=== PATIENT | female | born 1960 | race Caucasian/White ===

== ENCOUNTER → 2017-10-04 12:36 | Outpatient (CLI) | payer OTHER, SELFPAY ==
--- NOTE | 2017-10-04 12:38 | RAD_ITS ---
STUDY: X-RAY CHEST REASON FOR EXAM: Female, 57 years old. Shortness of breath and dyspnea. TECHNIQUE: PA and lateral views of the chest. COMPARISON: Chest radiograph dated June 05, 2016. FINDINGS: The lungs are clear and expanded. There is no demonstrated pleural abnormality. Normal size heart. Normal mediastinum and teresa. Normal visualized pulmonary arteries. There is atherosclerotic calcification of the aortic arch with tortuosity. There is demineralization of the osseous structures. Normal visualized ribs, clavicles, and shoulders. There is no demonstrated abnormality of the visualized soft tissue structures of the upper abdomen. RAD/Chest PA and Lateral IMPRESSION: No radiographic evidence of acute cardiopulmonary disease. Electronically Signed: Christa Peres MD at 9:04 EDT , Service support ,
== END ==
PROVIDERS: Family Provider Internal Medicine; PCP Internal Medicine; Visit Provider Internal Medicine Critical Care Medicine
DX: R06.02 Shortness of breath (principal); R06.09 Other forms of dyspnea
CPT/HCPCS: 71046

== ENCOUNTER → 2018-01-14 06:34 | Outpatient (CLI) | payer OTHER, SELFPAY ==
--- NOTE | 2018-01-14 09:25 | STRESSREP ---
Stress Test Report Exercise myocardial perfusion stress test. 57-year-old lady with a history of chest pain. Medications atenolol, lovastatin, aspirin. Stress protocol: Resting EKG demonstrates normal sinus rhythm with rate of 74 bpm previous inferior infarct present. Resting blood pressure is 142/72 mmHg. The patient exercised according to the regular Sarbjit protocol for total duration of 5 minutes and 30 seconds completing 2 minutes and 30 seconds into stage II of the Sarbjit protocol. The maximum heart rate attained was 139 bpm which was 85% of maximum predicted heart rate the maximum workload was 7 metabolic equivalents. Patient maintained sinus rhythm throughout the recording. The at rest nonspecific ST-T wave changes were noted with no meet the criteria for ischemia at peak infusion nonspecific ST-T wave changes were noted. No clinical angina was noted. Myocardial perfusion protocol. 13.8 mCi of technetium 99m sestamibi was injected at rest. The patient exercised according to regular Sarbjit protocol for 5 minutes and 30 seconds attaining 85% maximum predicted heart rate and a workload of 7 metabolic equivalents. At peak exercise 42.4 mCi of technetium 99m sestamibi was injected stress images were obtained stress and rest images were reconstructed and compared in the short axis vertical long and horizontal long axis. Gated images were also obtained pre- Perfusion SPECT analysis: Review of the stress images demonstrate a medium-sized perfusion defect involving the mid and basal inferior wall and reduction of perfusion noted in the inferior apical wall. The resting images demonstrate a mild to moderate amount of improvement involving the mid inferior wall suggesting an area of ischemia in a previously infarcted zone. Gated SPECT analysis: The gated ejection fraction is noted to be 62% with basal inferior hypokinesis present. Conclusion: Exercise myocardial perfusion stress test with medium amount of ischemia noted in the mid inferior wall Preserved ejection fraction with wall motion abnormality. No obvious angina noted.
== END ==
PROVIDERS: Family Provider Internal Medicine; PCP Internal Medicine; Visit Provider Internal Medicine
DX: R07.9 Chest pain, unspecified (principal); R06.09 Other forms of dyspnea
CPT/HCPCS: 78452; 93017; A9500; A4216; J2785

== ENCOUNTER 2018-02-05 20:28 | Emergency (ER) | payer OTHER, SELFPAY ==
[2018-02-05 20:29] VITALS: BP 146/65; PULSE 72; RESP 16; TEMP 37.1; O2SAT 95; BMI 28.8
--- NOTE | 2018-02-05 22:03 | ED.VISSUMM ---
- ER Visit Summary Date of Service: 02/05/18 Chief Complaint: Right arm swelling History of Present Illness: The patient is a 57 F who states that she has right arm swelling. Been ongoing for 5 days but worse today. She had a heart catheterization through that right arm on January 31. She states she has had a mild amount of swelling but it is worse today. She has had some intermittent numbness to this right arm. She denies any cool feeling to the arm. No history of DVT or PE. Physical Examination: Signs are reviewed. Right arm exam reveals no significant swelling. She is not specifically tender anywhere on the arm. She has 2+ radial pulses. Her capillary refill is less than 2 seconds. She has full range of motion. Test Results: None performed at this time Emergency Department Course and Treatment: Ultrasound cannot be performed tonight. She will come back in the morning. I will give her Tylenol for pain. I do not feel this represents any vascular compromise on the arterial side. She has good pulses and she has no significant swelling at this time. Treatment Plan: [] Disposition: Discharge Impression: Right arm swelling This note was generated with [employer] dictation software. It may contain incorrect words, spelling, and punctuation that were not noted in review of the chart prior to signing ED Disposition - Plan for ED Patient: Disposition: Home or Assisted Living Chief Complaint: Upper Extremity Injury Instructions: ED Sprain Shoulder Referrals: Dotty Guerrero MD [Primary Care Provider] -
[2018-02-05 22:06] VITALS: BP 120/51; PULSE 64; RESP 16; O2SAT 98
[2018-02-05] MEDS: Acetaminophen 500 MG Tablet 1000 MG PO (22:08)
== END 2018-02-05 22:23 | disposition home or self-care (01) ==
LOC: ED 22:12
PROVIDERS: Emergency Provider Emergency Medicine; Family Provider Internal Medicine; PCP Internal Medicine
DX: M79.89 Other specified soft tissue disorders (principal); I25.10 Atherosclerotic heart disease of native coronary artery without angina pectoris; Z72.0 Tobacco use; J44.9 Chronic obstructive pulmonary disease, unspecified; Z95.1 Presence of aortocoronary bypass graft
CPT/HCPCS: 99282

== ENCOUNTER → 2018-12-05 07:25 | Outpatient (CLI) | payer OTHER, SELFPAY ==
[2018-11-06 10:40] VITALS: BMI 28.4
--- NOTE | 2018-12-05 14:44 | PFTCOMP_ITS ---
COMPLETE PULMONARY FUNCTION TEST INTERPRETATION Brief HPI: Patient is a 58 year old female, currently under the care of myself, who presents to [facility] for complete pulmonary function tests secondary to diagnosis of COPD. Respiratory therapist reports good effort and reproducible results. Interpretation: Forced expiration spirometry shows a very severe large airways obstructive ventilatory defect with an FEV1 of 26% predicted. There is no significant bronchodilator response by strict ATS criteria. Spirograms are of good quality and plateau slowly, indicating slowly emptying areas of the lungs. The respiratory flow volume loop shows decreased expiratory flow rates at all lung volumes consistent with airway obstruction. Lung volumes by body plethysmography show a normal total lung capacity at 4.83 L, 95% predicted. FRC and RV are elevated out of proportion. Lung volume measurements are consistent with air-trapping. Diffusion capacity by carbon monoxide is reduced at 48% predicted. The airway resistance is elevated. Compared to previous pulmonary function tests from 04/24/2017, there is been a significant reduction in FVC and FEV1 by 24% and 32% respectively. Impression: Irreversible very severe large airways obstructive ventilatory defect resulting in air trapping and decreased diffusing capacity. There has been worsening compared to previous.
== END ==
PROVIDERS: Family Provider Internal Medicine; PCP Internal Medicine; Referring Provider Nurse Practitioner Acute Care; Visit Provider Nurse Practitioner Acute Care
DX: J44.9 Chronic obstructive pulmonary disease, unspecified (principal)
CPT/HCPCS: 94060; 94726; 94729

== ENCOUNTER → 2019-02-24 08:39 | Outpatient (CLI) | payer OTHER, SELFPAY ==
[2019-02-06 07:58] VITALS: BMI 28.4
[2019-02-24 09:43] VITALS: PULSE 66; PULSE 72; PULSE 85; PULSE 86; PULSE 87; PULSE 88; O2SAT 89; O2SAT 90; O2SAT 91; O2SAT 94
--- NOTE | 2019-02-24 15:10 | PCM.PSN.6M ---
PSN 6 Minute Walk Test - 6 Minute Walk Test 6 Minute Walk Test: 6 Minute Walk Test PSN:6-Minute Walk Test Start: 02/24/19 09:43 Freq: Status: Active Protocol: RESP.6MINW Document 02/24/19 09:43 ALEJANDRO (Rec: 02/24/19 09:45 ALEJANDRO [id number]) 6 Minute Walk Test Date Performed 02/24/19 Time Performed 09:10 Height 5 ft 5 in Weight: 78.471 kg Weight in Pounds 173.[address]: Sarbjit Ng Assistive device used: None Pre-test Oxygen Delivery Method Room Air Pulse Ox (%) 91 Pulse Rate (60-100 beats/min) 66 Dyspnea Gildardo Scale (0-10) 0 Exertion Gildardo Scale (6-20) 6 1st minute Oxygen Delivery Method Room Air Pulse Ox (%) 89 Pulse Rate (60-100 beats/min) 85 2nd minute Oxygen Delivery Method Room Air Pulse Ox (%) 90 Pulse Rate (60-100 beats/min) 86 3rd minute Oxygen Delivery Method Room Air Pulse Ox (%) 90 Pulse Rate (60-100 beats/min) 86 4th minute Oxygen Delivery Method Room Air Pulse Ox (%) 90 Pulse Rate (60-100 beats/min) 86 5th minute Oxygen Delivery Method Room Air Pulse Ox (%) 91 Pulse Rate (60-100 beats/min) 87 6th minute Oxygen Delivery Method Room Air Pulse Ox (%) 91 Pulse Rate (60-100 beats/min) 88 Dyspnea Gildardo Scale (0-10) 2 Exertion Gildardo Scale (6-20) 14 Post-test Oxygen Delivery Method Room Air Pulse Ox (%) 94 Pulse Rate (60-100 beats/min) 72 Full Laps Walked 14 Partial Lap, Number of Tiles Walked 10 Total Distance Walked (ft) 836 - Interpretation Interpretation: The patient was able to ambulate 836 feet over the course of 6 minutes on room air with no assistive devices or breaks. The patient did have a lower baseline saturation of 91% and desaturated to 89%. No significant tachycardia was noted. Patient did report back and leg pain at the end of ambulation. These findings are consistent with a respiratory limitation exercise tolerance. - Recommendations Recommendations: No supplemental oxygen is indicated at this time. However, patient's reserve is marginal and will need to be followed closely.
== END ==
PROVIDERS: Family Provider Internal Medicine; PCP Internal Medicine; Referring Provider Internal Medicine Critical Care Medicine; Visit Provider Internal Medicine Critical Care Medicine
DX: J44.9 Chronic obstructive pulmonary disease, unspecified (principal)
CPT/HCPCS: 94618

== ENCOUNTER → 2019-08-14 | Outpatient (CLI) | payer OTHER, SELFPAY ==
[2019-08-07 06:22] VITALS: BMI 29.6
== END | disposition home or self-care (01) ==
LOC: SL 13:49
PROVIDERS: PCP Internal Medicine; Referring Provider Internal Medicine Critical Care Medicine; Visit Provider Internal Medicine Critical Care Medicine
DX: J44.9 Chronic obstructive pulmonary disease, unspecified (principal); G47.33 Obstructive sleep apnea (adult) (pediatric)
CPT/HCPCS: 94762

== ENCOUNTER → 2020-01-22 | Outpatient (CLI) | payer OTHER, SELFPAY ==
[2019-08-07 06:22] VITALS: BMI 29.6
--- NOTE | 2020-01-23 12:31 | PFT ---
INTRODUCTION: The patient is a 59-year-old female that presents for pulmonary function studies secondary to a diagnosis of COPD. Respiratory therapy reports good patient effort. Bronchodilators were used during testing. INTERPRETATION: Forced expiration spirometry demonstrates the presence of a very severe large airways obstructive ventilatory defect. There was a significant response to aerosolized bronchodilators noted, based upon change in FVC. Spirograms are of fair quality and do not plateau indicating slow emptying of the lungs. Body plethysmography was performed and reveals an elevated RV to 208% of predicted, indicative of underlying air trapping. Diffusing capacity by single breath CO is reduced to 54% of predicted. IMPRESSION: Partially reversible very severe large airways obstructive ventilatory defect with associated air trapping and symmetric reduction in diffusing capacity.
== END | disposition home or self-care (01) ==
LOC: PSN 08:15
PROVIDERS: PCP Family Medicine; Referring Provider Nurse Practitioner Acute Care; Visit Provider Nurse Practitioner Acute Care
DX: J44.9 Chronic obstructive pulmonary disease, unspecified (principal)
CPT/HCPCS: 94060; 94726; 94729

== ENCOUNTER → 2020-01-23 | Outpatient (CLI) | payer OTHER, SELFPAY ==
[2019-08-07 06:22] VITALS: BMI 29.6
[2020-01-23 13:03] VITALS: PULSE 103; PULSE 108; PULSE 113; PULSE 124; PULSE 133; PULSE 134; PULSE 143; O2SAT 87; O2SAT 92; O2SAT 93; O2SAT 94; O2SAT 96
--- NOTE | 2020-01-23 13:06 | CPS ---
Patient wears oxygen at night bled into her Bipap. She does not wear oxygen during the day currently. Patient SpO2 was 87% on room air while at rest. Placed patient on 2 lpm O2, SpO2 94%. Started testing on 2 lpm oxygen.
--- NOTE | 2020-01-24 06:12 | PCM.PSN.6M ---
PSN 6 Minute Walk Test - 6 Minute Walk Test 6 Minute Walk Test: 6 Minute Walk Test PSN:6-Minute Walk Test Start: 01/23/20 13:03 Freq: Status: Active Protocol: RESP.6MINW Document 01/23/20 13:03 ALEJANDRO (Rec: 01/23/20 13:07 ALEJANDRO [id number]) 6 Minute Walk Test Date Performed 01/23/20 Time Performed 12:30 Height 5 ft 5 in Weight: 180 lb Weight in Pounds 180.[address]: Sarbjit Ng Assistive device used: None Pre-test Oxygen Delivery Method Room Air Pulse Ox (%) 87 Pulse Rate (60-100 beats/min) 103 H Dyspnea Gildardo Scale (0-10) 0.5 Exertion Gildardo Scale (6-20) 6 1st minute Oxygen Flow Rate (L/min) (L/min) 2 Oxygen Delivery Method Nasal Cannula Pulse Ox (%) 92 Pulse Rate (60-100 beats/min) 113 H 2nd minute Oxygen Flow Rate (L/min) (L/min) 2 Oxygen Delivery Method Nasal Cannula Pulse Ox (%) 92 Pulse Rate (60-100 beats/min) 124 H 3rd minute Oxygen Flow Rate (L/min) (L/min) 2 Oxygen Delivery Method Nasal Cannula Pulse Ox (%) 93 Pulse Rate (60-100 beats/min) 133 H 4th minute Oxygen Flow Rate (L/min) (L/min) 2 Oxygen Delivery Method Nasal Cannula Pulse Ox (%) 93 Pulse Rate (60-100 beats/min) 134 H 5th minute Oxygen Flow Rate (L/min) (L/min) 2 Oxygen Delivery Method Nasal Cannula Pulse Ox (%) 93 Pulse Rate (60-100 beats/min) 143 H 6th minute Oxygen Flow Rate (L/min) (L/min) 2 Oxygen Delivery Method Nasal Cannula Pulse Ox (%) 94 Pulse Rate (60-100 beats/min) 143 H Dyspnea Gildardo Scale (0-10) 5 Exertion Gildardo Scale (6-20) 14 Post-test Oxygen Flow Rate (L/min) (L/min) 2 Oxygen Delivery Method Nasal Cannula Pulse Ox (%) 96 Pulse Rate (60-100 beats/min) 108 H Full Laps Walked 12 Partial Lap, Number of Tiles Walked 30 Total Distance Walked (ft) 738 01/23/20 13:06 Cardiopulmonary Services by Nazanin Das Patient wears oxygen at night bled into her Bipap. She does not wear oxygen during the day currently. Patient SpO2 was 87% on room air while at rest. Placed patient on 2 lpm O2, SpO2 94%. Started testing on 2 lpm oxygen. Initialized on 01/23/20 13:06 - END OF NOTE - Interpretation Interpretation: The patient ambulated 734 feet over the course of 6 minutes beginning on 2 L/min without assistive devices or breaks. Pretesting oxygen saturation was noted to be 87% at rest. Therefore, the patient was placed on 2 L/min of supplemental oxygen prior to the start of testing. She was unable to ambulate throughout testing with a jorge oxygen saturation of 92%. The patient did develop significant tachycardia with exertion. - Recommendations Recommendations: 2 L/min of supplemental oxygen should be utilized at all times, both at rest and with exertion.
== END | disposition home or self-care (01) ==
LOC: PSN 12:33
PROVIDERS: PCP Family Medicine; Referring Provider Nurse Practitioner Acute Care; Visit Provider Nurse Practitioner Acute Care
DX: J44.9 Chronic obstructive pulmonary disease, unspecified (principal)
CPT/HCPCS: 94618

== ENCOUNTER → 2020-02-24 | Outpatient (CLI) | payer OTHER, SELFPAY ==
[2019-08-07 06:22] VITALS: BMI 29.6
[2020-02-24 09:56] LABS: Absolute Lymphocyte Count 2.16 X10^3/uL (0.83-4.51); Absolute Neutrophil Count 4.5 X10^3/uL (2.0-7.7); Basophil# 0.08 X10^3/uL; Basophil% 1.1 % (0-1); Eosinophils% 1.3 % (0-5); Hematocrit 45.5 % (37-47); Hemoglobin 15.1 g/dL (12.0-15.0); Lymphocyte # 2.16 X10^3/ul (4.0); Lymphocyte % 28.8 % (19-41); Mean Corp Hgb Conc 33.2 g/dL (32-36); Mean Corpuscular Hgb 30.3 pg (27.0-32.0); Mean Corpuscular Volume 91.2 fL (81-99); Mean Platelet Vol. 10.4 fl (6.2-12.0); Monocyte# 0.64 X10^3/uL; Monocyte% 8.5 % (0-10); NRBC Flagged by Analyzer 0 % (0-5); Platelet Count 290 K/mm3 (150-450); RBC Distribution Width CV 12.5 % (11.6-14.6); RBC Distribution Width SD 41.8 fl (35.1-43.9); Red Blood Count 4.99 M/mm3 (4.2-5.4); White Blood Count 7.5 K/mm3 (4.4-11.0)
[2020-02-24 17:47] LABS: Xtra Tube EP Lab EXTRA TUBE
[2020-02-26 07:07] LABS: Alternaria alternata <0.10 kU/L (Class 0); Bermuda Grass <0.10 kU/L (Class 0); Bluegrass, Kentucky <0.10 kU/L (Class 0); Cat Hair/Dander, Standard <0.10 kU/L (Class 0); D farinae Mite 0.26 kU/L (Class 0/I); D pteronyssinus 0.27 kU/L (Class 0/I); Dog Epithelia <0.10 kU/L (Class 0); Elm, American White <0.10 kU/L (Class 0); Mouse Urine <0.10 kU/L (Class 0); Oak, White <0.10 kU/L (Class 0); Plantain, English <0.10 kU/L (Class 0); Ragweed, Short/Common <0.10 kU/L (Class 0)
[2020-02-26 10:33] LABS: ANTINUCLEAR ANTIBODIES DIRECT Negative (Negative)
[2020-02-28 03:07] LABS: Aspirgillus flavus Negative (Neg:<1:1); Aspirgillus fumigatus Negative (Neg:<1:1); Aspirgillus niger Negative (Neg:<1:1)
[2020-02-28 05:51] LABS: Immunoglobulin E 36 IU/mL (6-495)
== END | disposition home or self-care (01) ==
LOC: PAVLAB 09:24
PROVIDERS: PCP Family Medicine; Referring Provider Nurse Practitioner Acute Care; Visit Provider Nurse Practitioner Acute Care
DX: R06.02 Shortness of breath (principal)
CPT/HCPCS: 36415; 82785; 85025; 86003; 86038; 86225; 86235; 86606

== ENCOUNTER → 2020-03-05 | Outpatient (CLI) | payer OTHER, SELFPAY ==
[2019-08-07 06:22] VITALS: BMI 29.6
--- NOTE | 2020-03-05 13:10 | CT_ITS ---
STUDY: LOW DOSE CT LUNG CANCER SCREENING REASON FOR EXAM: Female, 59 years old. TOBACCO USE, 1 ppd x 40 yrs screening for lung cancer RADIATION DOSAGE (If Supplied By Facility): CTDIvol = ( 3.02 ) mGy, DLP = ( 90.25 ) mGycm TECHNIQUE: No contrast was administered. Low dose technique was utilized (average mAS-38 and kVp 120). 1.25 mm axial source images with a slice interval of 1.25-mm were reconstructed in lung windows. 2.5 mm axial source images with a slice interval of 2.5-mm were reconstructed in lung windows. 5.0 mm axial source images with a slice interval of 5.0-mm were reconstructed in soft tissue windows. Nodule measured using lung windows on PACS and/or independent workstation with automated measurement of minimum and maximum diameter. Nodule measurement reported as average diameter rounded to the nearest whole number. Growth is defined as an increase ins size of greater than 1.5 mm. COMPARISON: December 14 2014, May 31 2012 Findings: Lungs are moderately emphysematous without focal high risk findings. There is minimal atelectatic and scarring change. Airways are patent. Pleural surfaces are intact. There is prior corny bypass grafting with severe [place] coronary artery disease. Cardiac chambers are normal in size and shape. Osseous structures are intact. CT/Low Dose CT Lung Screening IMPRESSION: 1. Lung RADS category 1. 2. Prior coronary artery disease. IMPORTANT NOTES FOR USE: ACR Lung-RADS Version 1.0 Assessment Categories Release Date: September 22, 2013 Category: Coded 0-4 bases on nodule(s) with highest degree of suspicion. Negative screen is defined as categories 1 and 2; a positive screen is defined as categories 3 and 4. Category 3 and 4A nodules that are unchanged on interval CT should be coded as category 2, and individuals returned to screening in 12 months. Category 4X: Category 3 or 4 nodules with additional imaging findings that increase the suspicion of lung cancer, such as spiculation, GGN that doubles in size in 1 year, enlarged lymph notes, etc. Category Modifiers: S (significant finding unrelated to lung cancer) and C (prior history of treated lung cancer) may be added to the 0-4 Lung-RADS Electronically Signed: Sven Lozada, at 14:09 EDT Tel , Service support ,
== END | disposition home or self-care (01) ==
LOC: CT 13:10
PROVIDERS: PCP Family Medicine; Referring Provider Nurse Practitioner Acute Care; Visit Provider Nurse Practitioner Acute Care
DX: F17.210 Nicotine dependence, cigarettes, uncomplicated (principal); Z12.2 Encounter for screening for malignant neoplasm of respiratory organs
CPT/HCPCS: G0297

== ENCOUNTER → 2021-03-10 06:56 | Outpatient (CLI) | payer OTHER, SELFPAY ==
--- NOTE | 2021-03-10 06:59 | CT_ITS ---
STUDY: LOW DOSE CT LUNG CANCER SCREENING REASON FOR EXAM: Female, 61 years old. Screening. Current smoker. Patient smokes 1-2 packs per day for 50 years. RADIATION DOSAGE (If Supplied By Facility): CTDIvol = ( 2.39 ) mGy, DLP = ( 73.25 ) mGycm TECHNIQUE: No contrast was administered. Low dose technique was utilized (average mAS-38 and kVp 120). 1.25 mm axial source images with a slice interval of 1.25-mm were reconstructed in lung windows. 2.5 mm axial source images with a slice interval of 2.5-mm were reconstructed in lung windows. 5.0 mm axial source images with a slice interval of 5.0-mm were reconstructed in soft tissue windows. Nodule measured using lung windows on PACS and/or independent workstation with automated measurement of minimum and maximum diameter. Nodule measurement reported as average diameter rounded to the nearest whole number. Growth is defined as an increase ins size of greater than 1.5 mm. COMPARISON: Comparison is made with prior examination 03/05/2020. NODULES: No suspicious nodules are seen. Emphysema: Emphysematous changes. Endobronchial lesion: None Aorta: Atherosclerotic plaque formation. Coronary arteries: Coronary artery calcification. Heart: Prior CABG. Pulmonary artery: Unremarkable. Mediastinal nodes: Unremarkable. Other chest and abdominal findings: CT/Low Dose CT Lung Screening IMPRESSION: Lung-RADS category 2 - Continue annual screening with LDCT in 12 months. IMPORTANT NOTES FOR USE: ACR Lung-RADS Version 1.1 Assessment Categories Release Date: 2018 Category: Coded 0-4 bases on nodule(s) with highest degree of suspicion. Negative screen is defined as categories 1 and 2; a positive screen is defined as categories 3 and 4. Category 3 and 4A nodules that are unchanged on interval CT should be coded as category 2, and individuals returned to screening in 12 months. Category 4X: Category 3 or 4 nodules with additional imaging findings that increase the suspicion of lung cancer, such as spiculation, GGN that doubles in size in 1 year, enlarged lymph notes, etc. Category Modifiers: S (significant finding unrelated to lung cancer) Electronically Signed: Jimmie Guerrier MD at 14:48 EDT , Service support ,
== END ==
PROVIDERS: PCP Family Medicine; Referring Provider Internal Medicine Critical Care Medicine; Visit Provider Internal Medicine Critical Care Medicine
DX: F17.210 Nicotine dependence, cigarettes, uncomplicated (principal); Z12.2 Encounter for screening for malignant neoplasm of respiratory organs
CPT/HCPCS: 71271

== ENCOUNTER → 2022-03-28 | Outpatient (CLI) | payer OTHER, SELFPAY ==
--- NOTE | 2022-03-28 08:35 | CT_ITS ---
STUDY: LOW DOSE CT LUNG CANCER SCREENING REASON FOR EXAM: Female, 62 years old. 40 pack year history. Quit 1 year ago RADIATION DOSAGE (If Supplied By Facility): CTDIvol = ( 3.02 ) mGy, DLP = ( 92.89 ) mGycm TECHNIQUE: No contrast was administered. Low dose technique was utilized (average mAS-38 and kVp 120). 1.25 mm axial source images with a slice interval of 1.25-mm were reconstructed in lung windows. 2.5 mm axial source images with a slice interval of 2.5-mm were reconstructed in lung windows. 5.0 mm axial source images with a slice interval of 5.0-mm were reconstructed in soft tissue windows. COMPARISON: March 10, 2021. NODULES: Total lung nodules (excluding granulomas): 0 Emphysema: Yes Endobronchial lesion: No Aorta: Stable atherosclerotic changes without aneurysm. CORONARY ARTERIES: Coronary artery calcification and evidence of CABG procedure. Heart: Normal Pulmonary artery: Normal Mediastinal nodes: Mildly enlarging mediastinal lymphadenopathy. These remains subcentimeter in size. Other chest and abdominal findings: Stable degenerative changes of the thoracic spine. CT/Low Dose CT Lung Screening IMPRESSION: Lung-RADS category 1 - Continue annual screening with LDCT in 12 months. IMPORTANT NOTES FOR USE: ACR Lung-RADS Version 1.1 Assessment Categories Release Date: 2018 Category: Coded 0-4 bases on nodule(s) with highest degree of suspicion. Negative screen is defined as categories 1 and 2; a positive screen is defined as categories 3 and 4. Category 3 and 4A nodules that are unchanged on interval CT should be coded as category 2, and individuals returned to screening in 12 months. Category 4X: Category 3 or 4 nodules with additional imaging findings that increase the suspicion of lung cancer, such as spiculation, GGN that doubles in size in 1 year, enlarged lymph notes, etc. Category Modifiers: S (significant finding unrelated to lung cancer) Electronically Signed: Jose De Jesus Spivey DO at 16:53 EDT Reading Location ID and State: [facility] / [place] Tel [phone], Service support ,
== END | disposition home or self-care (01) ==
LOC: CT 08:34
PROVIDERS: PCP Family Medicine; Visit Provider Nurse Practitioner Acute Care
DX: Z87.891 Personal history of nicotine dependence (principal)
CPT/HCPCS: 71271

== ENCOUNTER → 2023-04-10 | Outpatient (CLI) | payer MEDICARE, SELFPAY ==
--- NOTE | 2023-04-10 07:52 | CT_ITS ---
STUDY: LOW DOSE CT LUNG CANCER SCREENING REASON FOR EXAM: Female, 63 years old. Smoker and gt; 40 pack years RADIATION DOSAGE (If Supplied By Facility): CTDIvol = ( 3.02 ) mGy, DLP = ( 94.02 ) mGycm TECHNIQUE: No contrast was administered. Low dose technique was utilized (average mAS-38 and kVp 120). 1.25 mm axial source images with a slice interval of 1.25-mm were reconstructed in lung windows. 2.5 mm axial source images with a slice interval of 2.5-mm were reconstructed in lung windows. 5.0 mm axial source images with a slice interval of 5.0-mm were reconstructed in soft tissue windows. COMPARISON: Comparison is made with prior study dated March 28, 2022. NODULES: No suspicious nodules are seen. Emphysema: Mild degree of emphysematous changes. Stable mild scarring in the lingular segment of the left upper lobe as well as in the lower lobes. Endobronchial lesion: None Aorta: Mild atherosclerotic plaque formation of the aortic arch. CORONARY ARTERIES: Coronary artery calcification is seen. Prior CABG. Heart: Unremarkable Pulmonary artery: Unremarkable Mediastinal nodes: Small benign-appearing mediastinal lymph nodes. Other chest and abdominal findings: CT/Low Dose CT Lung Screening IMPRESSION: Lung-RADS category 2 - Continue annual screening with LDCT in 12 months. IMPORTANT NOTES FOR USE: ACR Lung-RADS Version 1.1 Assessment Categories Release Date: 2018 Category: Coded 0-4 bases on nodule(s) with highest degree of suspicion. Negative screen is defined as categories 1 and 2; a positive screen is defined as categories 3 and 4. Category 3 and 4A nodules that are unchanged on interval CT should be coded as category 2, and individuals returned to screening in 12 months. Category 4X: Category 3 or 4 nodules with additional imaging findings that increase the suspicion of lung cancer, such as spiculation, GGN that doubles in size in 1 year, enlarged lymph notes, etc. Category Modifiers: S (significant finding unrelated to lung cancer) Electronically Signed: Jimmie Guerrier MD at 13:01 EST ,
== END | disposition home or self-care (01) ==
LOC: CT 07:52
PROVIDERS: PCP Family Medicine; Referring Provider Nurse Practitioner Acute Care; Visit Provider Nurse Practitioner Acute Care
DX: F17.210 Nicotine dependence, cigarettes, uncomplicated (principal)
CPT/HCPCS: 71271

== ENCOUNTER → 2024-04-12 | Outpatient (CLI) | payer MEDICARE, SELFPAY ==
--- NOTE | 2024-04-12 10:17 | CT_ITS ---
STUDY: LOW DOSE CT LUNG CANCER SCREENING REASON FOR EXAM: Female, 64 years old. Smoker RADIATION DOSAGE (If Supplied By Facility): CTDIvol = ( 4.02 ) mGy, DLP = ( 123.86 ) mGycm TECHNIQUE: No contrast was administered. Low dose technique was utilized (average mAS-38 and kVp 120). 1.25 mm axial source images with a slice interval of 1.25-mm were reconstructed in lung windows. 2.5 mm axial source images with a slice interval of 2.5-mm were reconstructed in lung windows. 5.0 mm axial source images with a slice interval of 5.0-mm were reconstructed in soft tissue windows. COMPARISON: Comparison is made with prior study dated April 10, 2023. NODULES: No suspicious nodules are seen. Emphysema: Stable mild degree of the emphysematous changes and scarring in the lingula segment of the left upper lobe as well as in the lower lobes. Endobronchial lesion: None Aorta: Scattered calcific plaques of the level of the aortic arch. CORONARY ARTERIES: Coronary artery calcification is seen. Heart: Prior CABG Pulmonary artery: Unremarkable Mediastinal nodes: Small benign-appearing mediastinal lymph nodes. Other chest and abdominal findings: CT/Low Dose CT Lung Screening IMPRESSION: Lung-RADS category 2 - Continue annual screening with LDCT in 12 months. IMPORTANT NOTES FOR USE: ACR Lung-RADS Version 1.1 Assessment Categories Release Date: 2018 Category: Coded 0-4 bases on nodule(s) with highest degree of suspicion. Negative screen is defined as categories 1 and 2; a positive screen is defined as categories 3 and 4. Category 3 and 4A nodules that are unchanged on interval CT should be coded as category 2, and individuals returned to screening in 12 months. Category 4X: Category 3 or 4 nodules with additional imaging findings that increase the suspicion of lung cancer, such as spiculation, GGN that doubles in size in 1 year, enlarged lymph notes, etc. Category Modifiers: S (significant finding unrelated to lung cancer) Electronically Signed: Jimmie Guerrier MD at 11:05 EST ,
== END | disposition home or self-care (01) ==
PROVIDERS: PCP Family Medicine; Referring Provider Nurse Practitioner Acute Care; Visit Provider Nurse Practitioner Acute Care
DX: F17.210 Nicotine dependence, cigarettes, uncomplicated (principal)
CPT/HCPCS: 71271

== ENCOUNTER → 2025-02-25 | Outpatient (CLI) | payer MEDICARE, SELFPAY ==
[2025-02-25 14:21] LABS: Hematocrit 42.1 % (37-47); Hemoglobin 13.9 g/dL (12.0-15.0); Immature Granulocytes Count 0.010 X10^3/uL (0.0-0.0); Mean Corp Hgb Conc 33.0 g/dL (32-36); Mean Corpuscular Volume 88.3 fL (81-99); Mean Platelet Vol. 10.0 fl (6.2-12.0); NRBC Flagged by Analyzer 0 % (0-5); Platelet Count 298 K/mm3 (150-450); RBC Distribution Width CV 12.9 % (11.6-14.6); RBC Distribution Width SD 41.6 fl (35.1-43.9); Red Blood Count 4.77 M/mm3 (4.2-5.4); White Blood Count 8.1 K/mm3 (4.4-11.0)
== END | disposition home or self-care (01) ==
PROVIDERS: PCP Family Medicine; Referring Provider Nurse Practitioner Acute Care; Visit Provider Nurse Practitioner Acute Care
DX: J96.11 Chronic respiratory failure with hypoxia (principal)
CPT/HCPCS: 36415; 85025

== ENCOUNTER → 2025-04-13 | Outpatient (CLI) | payer MEDICARE, SELFPAY ==
--- NOTE | 2025-04-13 08:05 | CT_ITS ---
PROCEDURE: LOW DOSE CT LUNG SCREENING 04/13/2025 REASON FOR EXAM: SMOKER TECHNIQUE: Procedure Code: [id number] Modality: CT Procedure: LOW DOSE CT LUNG SCREENING Coronal and Sagittal reconstruction series were provided. One or more dose reduction techniques were used (e.g., Automated exposure control, adjustment of the mA and/or kV according to patient size, use of iterative reconstruction technique). REFERENCE LINK: [facility] Lung-RADS RADIATION DOSE SUMMARY: CTDlvol: 2.01 mGy DLP: 65.19 mGycm COMPARISON: Low-dose CT lung screen, 04/12/2024. FINDINGS: PULMONARY NODULES: (Only nodules >3mm are reported) Lower neck:The thyroid gland is grossly enlarged and contains coarse calcifications. There is no supraclavicular lymphadenopathy. Mediastinum:There are multiple enlarged mediastinal lymph nodes, index node, a right paratracheal node, measuring 1.9 x 1.1 cm (was 1.8 x 1.0 cm). Heart and thoracic aorta:The heart is enlarged. There is no pericardial effusion. There is severe calcific vascular disease of the coronary arteries and thoracic aorta. Status post CABG surgery. Esophagus:There is a small hiatal hernia. Upper Abdomen:There is significant calcific vascular disease of the visualized abdominal aorta with significant calcifications of the origin of both renal arteries in the SMA. Chest wall:There are surgical clips in the right breast consistent with excisional biopsy/partial mastectomy. There are few reactive axillary lymph nodes bilaterally. Status post median sternotomy. There are Schmorl's nodes at multiple thoracic vertebral endplates. There is mild dextroscoliosis of the thoracic spine. Lungs, airways and pleura: There is moderate upper lobe predominant centrilobular emphysema. There is linear scarring in the middle lobe of the right lung in the inferior segment of the lingula. There are no pulmonary nodules or masses. There are no pleural effusions. CT/Low Dose CT Lung Screening IMPRESSION: 1. Emphysema. 2. No pulmonary nodules or masses. 3. Extensive calcific vascular disease of the coronary arteries and thoracoabd ominal aorta. Status post CABG surgery. 4. Stable reactive mediastinal lymphadenopathy. 5. Other findings as noted. Lung-RADS Category: 1 S: Negative. Emphysema. Calcific vascular disease. Recommendation: Follow up low-dose chest CT in 12 months. Reading Location: [place] [id number]
== END | disposition home or self-care (01) ==
LOC: CT 07:59
PROVIDERS: PCP Family Medicine; Referring Provider Nurse Practitioner Acute Care; Visit Provider Nurse Practitioner Acute Care
DX: F17.210 Nicotine dependence, cigarettes, uncomplicated (principal)
CPT/HCPCS: 71271